=== PATIENT | female | born 1960 | race Two or more races ===

== ENCOUNTER 2016-12-05 09:23 | Emergency (ER) | payer OTHER ==
[~2016-12-05] VITALS: Ht 172.7 cm; Wt 77.1 kg
[2016-12-05 09:32] VITALS: BP 149/88
== END 2016-12-05 10:05 | disposition home or self-care (01) ==
LOC: ER 09:25
DX: S80.862A Insect bite (nonvenomous), left lower leg, initial encounter (principal); Z91.018 Allergy to other foods; Z91.010 Allergy to peanuts; Z88.5 Allergy status to narcotic agent; Z85.850 Personal history of malignant neoplasm of thyroid; W57.XXXA Bitten or stung by nonvenomous insect and other nonvenomous arthropods, initial encounter; Y93.89 Activity, other specified; Y92.89 Other specified places as the place of occurrence of the external cause; Y99.9 Unspecified external cause status
CPT/HCPCS: A4606; Z7610

== ENCOUNTER 2019-07-28 14:19 | Emergency (ER) | payer OTHER ==
[~2019-07-28] VITALS: Ht 175.3 cm; Wt 76.2 kg
[2019-07-28 14:31] VITALS: BP 164/79
--- NOTE | 2019-07-28 14:54 | NUR ---
OSMEL RENTERIA AT BEDSIDE FOR EVAL.
[2019-07-28] MEDS ORDERED: GELATIN SPONGE,ABSORBABLE 1 SPONGE SPONGE TP ONE (14:58)
[2019-07-28] MEDS ORDERED: TDAP [DIPH/PERTUSSIS/TET] 0.5 ML VIAL IM ONE (15:00)
--- NOTE | 2019-07-28 15:20 | NUR ---
WOUND CLEANING AND DRESSING DONE BY RIDING DOUBLE.
--- NOTE | 2019-07-28 15:53 | NUR ---
Patient discharged to home in stable condition. Written and verbal after care instructions given. Patient verbalizes understanding of instruction.
== END 2019-07-28 15:55 | disposition home or self-care (01) ==
LOC: ER 14:22
DX: S61.001A Unspecified open wound of right thumb without damage to nail, initial encounter (principal); Z88.5 Allergy status to narcotic agent; Z91.010 Allergy to peanuts; Z91.018 Allergy to other foods; Z85.850 Personal history of malignant neoplasm of thyroid; W26.8XXA Contact with other sharp object(s), not elsewhere classified, initial encounter; Y93.89 Activity, other specified; Y92.89 Other specified places as the place of occurrence of the external cause; Y99.8 Other external cause status